=== PATIENT | male | born 1970 | race Caucasian/White ===

== ENCOUNTER 2023-09-27 08:49 | Emergency (ER) | payer OTHER, BC ==
[2023-09-27] MEDS ORDERED: Ciprofloxacin in D5W 400 MG in Premix Bag 1 BAG IV ONE ×2 (09:23)
[2023-09-27] MEDS ORDERED: metroNIDAZOLE/Normal Saline 500 MG in Premix Bag 1 BAG IV ONE (09:23)
[2023-09-27] MEDS ORDERED: Ketorolac 30 MG/ML SDV IVPUSH ONE (09:23)
[2023-09-27] MEDS ORDERED: Sodium Chloride 0.9% 10 ML Syringe FLUSH PRN (09:23)
== END 2023-09-27 11:23 | disposition home or self-care (01) ==
LOC: JP.ED 08:49
DX: K57.92 Diverticulitis of intestine, part unspecified, without perforation or abscess without bleeding (principal); Z88.0 Allergy status to penicillin
CPT/HCPCS: 96365; 96368; 96375; 99283; J0744; J1836; J1885; J3490